=== PATIENT | male | born 1985 | race Caucasian/White ===

== ENCOUNTER 2017-01-11 18:53 | Emergency (ER) | payer OTHER ==
[~2017-01-11] VITALS: Ht 188 cm; Wt 88.5 kg
== END 2017-01-11 20:35 | disposition home or self-care (01) ==
LOC: CED 18:53 → CFTX 20:22 → CED 20:22
DX: T63.301A Toxic effect of unspecified spider venom, accidental (unintentional), initial encounter (principal); L03.113 Cellulitis of right upper limb; Y92.009 Unspecified place in unspecified non-institutional (private) residence as the place of occurrence of the external cause; F17.210 Nicotine dependence, cigarettes, uncomplicated; Z98.890 Other specified postprocedural states
CPT/HCPCS: 99282

== ENCOUNTER 2017-01-22 01:02 | Emergency (ER) | payer OTHER ==
[~2017-01-22] VITALS: Ht 188 cm; Wt 86.2 kg
== END 2017-01-22 02:44 | disposition home or self-care (01) ==
LOC: CED 01:02
DX: R21 Rash and other nonspecific skin eruption (principal); Z88.5 Allergy status to narcotic agent
CPT/HCPCS: 99282